=== PATIENT | male | born 1960 | race Caucasian/White ===

== ENCOUNTER 2022-05-27 09:13 | Day surgery (SDC) | payer OTHER ==
[~2022-05-27] VITALS: Ht 177.8 cm; Wt 128.9 kg
--- NOTE | 2022-05-27 10:47 | NUR ---
05/27/22 Jeremy Bell LIDOCAINE 2% WITH EPI 1:100,000 MIXED 1:1 WITH NACL TO CREATE A LOCAL SOLUTION OF LIDOCAINE 1% WITH EPI 1:200,000. 4MLS OF THIS LOCAL SOLUTION USED PRIOR TO START OF PROCEDURE.
--- NOTE | 2022-05-27 11:33 | NUR ---
05/27/22 1133 CALI RASHID PT HAS SLEEP APNEA- WHEN FALLS ASLEEP, O2 DROPS TO 70'S. ON 15 L O2 VIA FACE TENT. WILL SEE IF PT CAN STAY AWAKE , WILL TRIAL ON 10L.
--- NOTE | 2022-05-27 12:15 | NUR ---
05/27/22 1215 CALI RASHID PRACTICING INCENTIVE SPIROMOMETER. DOING VERY WELL. O2 IN MID TO UPPER 90'S MOST OF THE TIME. CURRENTLY 100% ON RA.
== END 2022-05-27 12:35 | disposition home or self-care (01) ==
LOC: ORSCSDS 09:13
PROVIDERS: Otolaryngology
PROC: 09SL0ZZ Reposition Nasal Turbinate, Open Approach (ICD-10-PCS; principal; 2022-05-27 10:30)
PROC: 09BM0ZZ Excision of Nasal Septum, Open Approach (ICD-10-PCS; principal; 2022-05-27 10:30)
DX: J34.2 Deviated nasal septum (principal); J34.3 Hypertrophy of nasal turbinates; G47.33 Obstructive sleep apnea (adult) (pediatric); J45.909 Unspecified asthma, uncomplicated; E66.01 Morbid (severe) obesity due to excess calories; Z68.41 Body mass index [BMI] 40.0-44.9, adult
CPT/HCPCS: J0171; J1100; J2250; J2405; J2704; J3010; J7120

== ENCOUNTER → 2022-10-06 | Outpatient (CLI) | payer OTHER ==
[2022-10-06 16:52] LABS: Anion Gap 3 mmol/L (6-16); Blood Urea Nitrogen 18 mg/dL (8-24); Bun/Creatinine Ratio 18.1 (12.0-20.0); CHOL/HDL RATIO 4.6; CO2, Blood 28 mmol/L (21-32); Calcium, Blood 9.1 mg/dL (8.5-10.1); Chloride, Blood 106 mmol/L (98-108); Cholesterol 226 mg/dL (50-200); Glomerular Filtration Rate 84 (60-); Glucose, Blood 106 mg/dL (70-99); HDL Cholesterol 49 mg/dL (>39); LDL/HDL RATIO 2.4; Low Density Lipoprotein Chol 118 mg/dL (0-110); Potassium, Blood 4.3 mmol/L (3.5-5.5); Sodium, Blood 137 mmol/L (136-145); Triglycerides 297 mg/dL (30-160); Very Low Density Lipoprot Chol 59 mg/dL (6-32)
== END | disposition home or self-care (01) ==
LOC: LAB SHORT 10:23 → LAB 10:23
PROVIDERS: Nurse Practitioner Family
DX: E78.5 Hyperlipidemia, unspecified (principal); R73.01 Impaired fasting glucose
CPT/HCPCS: 80048; 80061; 83036